=== PATIENT | female | born 1940 | race Two or more races ===

== ENCOUNTER 2022-10-20 05:40 | Day surgery (SDC) | payer OTHER ==
[~2022-10-20] VITALS: Ht 162.6 cm; Wt 67.6 kg
[~2022-10-20 05:40] MED LIST: ATORVASTATIN CA10 MG PO; ELIQUIS2.5 MG PO; FOSAMAX70 MG PO; PROTONIX20 MG PO; SINGULAIR10 MG PO; TRELEGY ELLIPT1 EACH IH
[2022-10-20] MEDS ORDERED: RECTICARE30 GM TOP (10:05)
[2022-10-20] MEDS ORDERED: TRAM1TAB98 PO (10:05)
== END 2022-10-20 15:00 | disposition home or self-care (01) ==
LOC: CIR.AMB 05:40
PROVIDERS: ATTEND Surgery
DX: K62.0 Anal polyp (principal); K62.1 Rectal polyp; Z88.5 Allergy status to narcotic agent; E78.49 Other hyperlipidemia; K64.2 Third degree hemorrhoids; Z20.822 Contact with and (suspected) exposure to COVID-19